=== PATIENT | female | born 2000 | race Caucasian/White ===

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

== ENCOUNTER 2021-03-29 13:39 | Emergency (ER) | payer OTHER ==
[2021-03-29 16:25] LABS: BILIRUBIN NEGATIVE (NEGATIVE); BLOOD NEGATIVE Ery/uL (NEGATIVE); CLARITY CLEAR (CLEAR); COLOR YELLOW (YELLOW); GLUCOSE (U) NORMAL (NORMAL); LEUKOCYTES NEGATIVE Leu/uL (NEGATIVE); NITRITE NEGATIVE (NEGATIVE); PROTEIN NEGATIVE (NEGATIVE); SPECIFIC GRAVITY 1.025 (1.001-1.030); UROBILINOGEN 0.2 mg/dL (0.2-1.0); pH 6.5 (5.0-9.0)
[2021-03-29 16:25] LABS: BASOPHIL 0.5 % (0-2); EOSINOPHIL 2.2 % (0-5); HCT 44.9 % (37.0-47.0); HGB 14.2 g/dl (12.5-16.0); LYMPHOCYTE 13.5 % (15-48); MCH 29.1 pg (25.0-31.0); MCHC 31.6 g/dL (32.0-36.0); MONOCYTE 8.7 % (0-12); MPV 9.4 fL (6.0-9.5); NEUTROPHIL 73.7 % (41-80); NRBC 0; PLT 337 K/uL (150-400); RBC 4.88 M/uL (4.20-5.40); RDW 13.2 % (11.5-14.0); WBC 12.3 K/uL (4.0-10.5)
[2021-03-29 17:05] LABS: ALBUMIN 4.1 g/dL (3.4-5.0); BILIRUBIN - TOTAL 0.5 mg/dL (0.2-1.0); BUN/CREAT RATIO (CALC) 13.4 RATIO; CREATININE 0.82 mg/dL (0.51-0.95); GLOBULIN (CALCULATION) 3.4 g/dL; MAGNESIUM 2.4 mg/dL (1.8-2.4); POTASSIUM 4.4 mmol/L (3.5-5.1); TOTAL PROTEIN 7.5 g/dL (6.4-8.2)
[2021-03-29 17:58] LABS: HCG (URINE) SCREEN NEGATIVE (NEGATIVE)
== END 2021-03-29 19:42 | disposition home or self-care (01) ==
LOC: FER 13:39
PROVIDERS: Emergency Medicine
DX: F41.9 Anxiety disorder, unspecified (principal); R07.89 Other chest pain; R20.0 Anesthesia of skin; R91.8 Other nonspecific abnormal finding of lung field
CPT/HCPCS: 36415; 71045; 71275; 80053; 81003; 83735; 84439; 84443; 84484; 84703; 85025; 85379; 93005; J7030; Q9967

== ENCOUNTER 2021-06-01 13:02 | Emergency (ER) | payer OTHER ==
[2021-06-01 14:00] LABS: BILIRUBIN NEGATIVE (NEGATIVE); BLOOD NEGATIVE Ery/uL (NEGATIVE); CLARITY CLEAR (CLEAR); COLOR YELLOW (YELLOW); GLUCOSE (U) NORMAL (NORMAL); LEUKOCYTES NEGATIVE Leu/uL (NEGATIVE); NITRITE NEGATIVE (NEGATIVE); PROTEIN NEGATIVE (NEGATIVE); SPECIFIC GRAVITY 1.015 (1.001-1.030); UROBILINOGEN 0.2 mg/dL (0.2-1.0); pH 7.5 (5.0-9.0)
[2021-06-01 14:03] LABS: AMPHETAMINES NEGATIVE (NEGATIVE); BARBITURATES NEGATIVE (NEGATIVE); ECSTASY (MDMA) NEGATIVE (NEGATIVE); MARIJUANA (THC) NEGATIVE (NEGATIVE); METHADONE NEGATIVE (NEGATIVE); OPIATES NEGATIVE (NEGATIVE); OXYCODONE NEGATIVE (NEGATIVE)
[2021-06-01 15:06] LABS: BASOPHIL 0.6 % (0-2); EOSINOPHIL 1.1 % (0-5); HCT 43.6 % (37.0-47.0); MCH 29.5 pg (25.0-31.0); MCHC 32.1 g/dL (32.0-36.0); MCV 91.8 fL (78.0-100.0); MONOCYTE 8.5 % (0-12); MPV 10.2 fL (6.0-9.5); NEUTROPHIL 79.9 % (41-80); NRBC 0; PLT 279 K/uL (150-400); RBC 4.75 M/uL (4.20-5.40); RDW 14.1 % (11.5-14.0); WBC 13.3 K/uL (4.0-10.5)
[2021-06-01 15:35] LABS: ALBUMIN 4.2 g/dL (3.4-5.0); BILIRUBIN - TOTAL 1.1 mg/dL (0.2-1.0); BUN/CREAT RATIO (CALC) 14.7 RATIO; CREATININE 0.68 mg/dL (0.51-0.95); FT4 (FREE T4) 1.6 ng/dL (0.76-1.46); GLOBULIN (CALCULATION) 3.7 g/dL; POTASSIUM 4.5 mmol/L (3.5-5.1); TOTAL PROTEIN 7.9 g/dL (6.4-8.2)
[2021-06-01] MEDS ORDERED: AMOXICILLIN500 MG PO ×3 (16:17→16:32)
== END 2021-06-01 16:40 | disposition home or self-care (01) ==
LOC: FER 13:02
PROVIDERS: Physician Assistant
DX: I10 Essential (primary) hypertension (principal); H66.91 Otitis media, unspecified, right ear
CPT/HCPCS: 36415; 80053; 80305; 81003; 84439; 84443; 85025; 93005; 99283; J7030

== ENCOUNTER 2021-09-23 10:00 | Emergency (ER) | payer OTHER ==
[~2021-09-23 10:00] MED LIST: AMOXICILLIN500 MG PO
[2021-09-23] MEDS ORDERED: AUGMENTIN 500-1 EACH PO (10:40)
== END 2021-09-23 12:10 | disposition home or self-care (01) ==
LOC: FER 10:00
DX: S61.252A Open bite of right middle finger without damage to nail, initial encounter (principal); F17.290 Nicotine dependence, other tobacco product, uncomplicated; Z23 Encounter for immunization; Z28.310 Unvaccinated for COVID-19; Z91.040 Latex allergy status; W54.0XXA Bitten by dog, initial encounter; Y92.89 Other specified places as the place of occurrence of the external cause; Y99.0 Civilian activity done for income or pay
CPT/HCPCS: 73130; 90471; 90715